=== PATIENT | female | born 2000 | race Caucasian/White ===

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

== ENCOUNTER 2024-09-09 14:22 | Outpatient (REF) | payer OTHER, SELFPAY | END 2024-09-09 14:23 | disposition home or self-care (01) | LOC: LBN 14:22 | PROVIDERS: PCP Nurse Practitioner Family; Visit Provider Physician Assistant | DX: J02.9 Acute pharyngitis, unspecified (principal) | CPT/HCPCS: 87070 ==